=== PATIENT | male | born 1960 | race American Indian/Alaskan Native ===

== ENCOUNTER 2017-05-30 08:44 | Inpatient (IN) | payer MEDICAID ==
[2013-12-14 13:26] VITALS: BMI 43.2
[2017-05-30] MEDS ORDERED: Sodium Chloride 0.9% 1,000 ML IV STA ×2 (09:17→12:02)
[2017-05-30 09:40] LABS: BASO # 0.1 K/uL (0.0-0.2); BASO % 0.7 % (0.0-2.0); EOS # 0.1 K/uL (0.0-0.7); EOS % 0.9 % (0.0-4.0); HEMATOCRIT 42.6 % (35.0-51.0); LYMPH # 1.1 K/uL (1.0-4.3); LYMPH % 10.4 % (20.0-40.0); MEAN CELL VOLUME 89.4 fL (80.0-94.0); MEAN CORPUSCULAR HEMOGLOBIN 29.5 pg (27.0-31.0); MEAN PLATELET VOLUME 11.4 fL (7.2-11.7); MONO # 0.8 K/uL (0.0-0.8); MONO % 7.4 % (0.0-10.0); WHITE BLOOD COUNT 11.1 K/uL (4.8-10.8)
[2017-05-30 09:44] LABS: VENOUS BLOOD GAS BASE EXCESS -9.8 mmol/L (0.0-2.0); VENOUS BLOOD GAS PCO2 30 mmHg (40-60); VENOUS BLOOD PH 7.31 (7.32-7.43)
[2017-05-30 09:52] LABS: CHLORIDE 90 mmol/L (98-107)
[2017-05-30] MEDS ORDERED: (Novolin R) Insulin Human Regular 100 units/ml vial IV STA ×2 (09:52)
[2017-05-30 09:53] LABS: POTASSIUM 4.7 mmol/L (3.6-5.2); SODIUM 125 mmol/L (132-148)
[2017-05-30 09:55] LABS: ALB/GLOB RATIO 1.2 (1.0-2.1); AST/SGOT 19 U/L (17-59); BLOOD UREA NITROGEN 17 mg/dL (9-20); CARBON DIOXIDE 15 mmol/L (22-30); GFR AFRICAN-AMERICAN > 60; TOTAL PROTEIN 8.2 g/dL (6.3-8.3)
[2017-05-30 09:56] LABS: ALKALINE PHOSPHATASE 116 U/L (38-126); ALT/SGPT 34 U/L (21-72)
[2017-05-30] MEDS ORDERED: (Novolin R) Insulin Human Regular 100 units/ml vial ONE (10:06)
[2017-05-30 10:17] LABS: GLUCOSE,RANDOM 562 mg/dL (75-110)
--- NOTE | 2017-05-30 11:04 | C.PDOC ---
History Of Present Illness 56 year old male presents to the ED complaining of not feeling well for the past week. He reports fatigue, feeling drained, and always feeling thirsty. Patient has a history of HTN, CAD, and stent placement. No prior history of diabetes. Time Seen by Provider: 05/30/17 08:56 Chief Complaint (Nursing): Weakness/Neurological Deficit History Per: Patient History/Exam Limitations: no limitations Onset/Duration Of Symptoms: Days Current Symptoms Are (Timing): Still Present Past Medical History Reviewed: Historical Data, Nursing Documentation, Vital Signs Vital Signs: Last Vital Signs Temp 97.7 F 05/30/17 08:48 Pulse 70 05/30/17 12:41 Resp 16 05/30/17 12:41 BP 137/78 05/30/17 12:41 Pulse Ox 98 05/30/17 15:52 - Medical History PMH: HTN Surgical History: Denies: Pacemaker - [facility] Procedures CORONAR ARTERIOGR-2 CATH (12/15/13) LEFT HEART CARDIAC CATH (12/15/13) LT HEART ANGIOCARDIOGRAM (12/15/13) Family History: States: Unknown Family Hx - Social History Hx Alcohol Use: Yes (BEER STOPPED 5 MONS AGO) Hx Substance Use: No Review Of Systems Constitutional: Positive for: Weakness, Other (Fatigue, Polydipsia ) Physical Exam - Physical Exam Appears: Non-toxic, No Acute Distress Skin: Normal Color, Warm, Dry Head: Atraumatic, Normacephalic Eye(s): bilateral: Normal Inspection, PERRL, EOMI Oral Mucosa: Dry, Other (Breath with fruity smell) Throat: Other Neck: Normal, Normal ROM, Supple Chest: Symmetrical, No Tenderness Cardiovascular: Rhythm Regular (Regular Rate), No Murmur Respiratory: Normal Breath Sounds Gastrointestinal/Abdominal: Soft, No Tenderness Extremity: Normal ROM, No Tenderness, No Calf Tenderness, No Swelling Neurological/Psych: Oriented x3, Normal Speech, Normal Cognition, Normal Motor, Normal Sensation ED Course And Treatment - Laboratory Results Result Diagrams: 05/30/17 09:34 05/30/17 14:20 O2 Sat by Pulse Oximetry: 98 - Radiology CXR: Interpreted by In CXR Interpretation: Yes: No Acute Disease Progress Note: Repeated BMP with improvement. Stopped Insulin Drip. Endocrinilogy consult at bedside. Patient is stable to be admitted to [facility]. Medical Decision Making Medical Decision Makin05/30/17 09:40 Finger stick over 400. Labs, including VBG, ordered. 09:50 pH slightly decreased but chemistry shows that patient has a low bicarb, elevated anion gap, and small serum ketones . Patient given IV fluids, 6 units of insulin IVP, and started on insulin drip at 5 units per hour. Case discussed with ICU attending Dr. Wong who cleared patient from ICU and states that the patient is stable enough to be admitted to the floor. He requests patient be admitted to telemetry to decreased IV drip to 3 units per hour and active check every 2 hours. 05/30/17 10:[address] Johnson who recommended speaking with Dr. Garth Vasquez for endocrinology consult. 05/30/17 11:[address] Vasquez numerous times with no response. Disposition - Disposition Disposition: HOSPITALIZED Disposition Time: 12:10 Condition: SERIOUS - Clinical Impression Clinical Impression: Diabetes mellitus, new onset, DKA (diabetic ketoacidoses) - Scribe Statement The provider has reviewed the documentation as recorded by the Scribe Georges Edwards
[2017-05-30] MEDS ORDERED: Insulin Human Regular 100 UNIT in Sodium Chloride 0.9% 99 ML IV STA (11:30)
[2017-05-30] MEDS: Insulin Human Regular 100 UNIT in Sodium Chloride 0.9% 99 ML IV STA ×2 (11:38→11:43)
[2017-05-30 12:26] LABS: RBC URINE < 1 /hpf (0-3); URINE BILIRUBIN NEGATIVE (NEGATIVE); URINE BLOOD NEGATIVE (NEGATIVE); URINE COLOR Straw (YELLOW); URINE GLUCOSE (UA) 3+ mg/dL (Normal); URINE KETONE 2+ mg/dL (NEGATIVE); URINE LEUKOCYTE ESTERASE NEG Leu/uL (Negative); URINE PROTEIN NEGATIVE (NEGATIVE); URINE UROBILINOGEN NORMAL mg/dL (0.2-1.0); WBC URINE 2 /hpf (0-5)
[2017-05-30] MEDS ORDERED: Sodium Chloride 0.9% 1,000 ML ONE (13:09)
[2017-05-30] MEDS: Sodium Chloride 0.9% 1,000 ML IV SCH ×3 (13:11→22:18)
--- NOTE | 2017-05-30 14:06 | RAD ---
PROCEDURE: CHEST RADIOGRAPH, 1 VIEW HISTORY: hyperglycemia COMPARISON: None available. FINDINGS: LUNGS: Clear. PLEURA: No pneumothorax or pleural fluid seen. CARDIOVASCULAR: Normal. OSSEOUS STRUCTURES: No significant abnormalities. VISUALIZED UPPER ABDOMEN: Normal. OTHER FINDINGS: None. IMPRESSION: No active disease.
[2017-05-30 14:50] LABS: CHLORIDE 98 mmol/L (98-107); POTASSIUM 3.9 mmol/L (3.6-5.2); SODIUM 131 mmol/L (132-148)
[2017-05-30 14:53] LABS: BLOOD UREA NITROGEN 13 mg/dL (9-20); CARBON DIOXIDE 16 mmol/L (22-30); GFR AFRICAN-AMERICAN > 60
[2017-05-30 14:54] LABS: CALCIUM 8.4 mg/dl (8.6-10.4); GLUCOSE,RANDOM 303 mg/dL (75-110)
[2017-05-30] MEDS ORDERED: (Lantus) Insulin Glargine, Recombinant SC STA (16:14)
[2017-05-30] MEDS ORDERED: (Lantus) Insulin Glargine, Recombinant SC SCH (16:30)
[2017-05-30] MEDS ORDERED: (Novolin R) Insulin Human Regular 100 units/ml vial SC SCH (16:30)
[2017-05-30] MEDS ORDERED: (Lantus) Insulin Glargine, Recombinant SC ONE (16:33)
--- NOTE | 2017-05-30 17:27 | CP.PCM.CON ---
History of Present Illness - History of Present Illness History of Present Illness: diabetes Past Patient History - Past Social History Smoking Status: Never Smoked - CARDIAC Hx Hypertension: Yes Hx Pacemaker: No - NEUROLOGICAL Hx Paralysis: No - HEMATOLOGICAL/ONCOLOGICAL Hx Blood Transfusions: No Hx Blood Transfusion Reaction: No - MUSCULOSKELETAL/RHEUMATOLOGICAL Hx Musculoskeletal Disorders: Yes - PSYCHIATRIC Hx Substance Use: No - SURGICAL HISTORY Hx Surgeries: Yes Other/Comment: CORONARY STENT X2 - ANESTHESIA Hx Anesthesia Reactions: No Hx Malignant Hyperthermia: No Meds Allergies/Adverse Reactions: Allergies Allergy/AdvReac Type Severity Reaction Status Date / Time No Known Allergies Allergy Verified 05/30/17 08:53 - Medications Medications: Current Medications Clopidogrel Bisulfate (Plavix) 75 mg PO DAILY [facility] Enoxaparin Sodium (Lovenox) 40 mg SC DAILY [facility] Home Med (Lisinopril [Lisinopril]) 12.5 mg PO DAILY [facility] Insulin Human Regular 100 unit (/ Sodium Chloride) 100 mls @ 3 mls/hr IV .Q24H STA PRN Reason: 3 U/HR Stop: 05/31/17 10:23 Last Admin: 05/30/17 11:30 Dose: 3 mls/hr Sodium Chloride (Sodium Chloride 0.9%) 1,000 mls @ 200 mls/hr IV .Q5H [facility] Last Admin: 05/30/17 13:11 Dose: 200 mls/hr Insulin Glargine (Lantus) 20 unit SC DAILY [facility] Last Admin: 05/30/17 16:34 Dose: 20 unit Insulin Human Regular (Novolin R) 0 unit SC ACHS YULIA PRN Reason: Protocol Insulin Human Regular (Novolin R) 5 unit SC AC [facility] Metoprolol Tartrate (Lopressor) 25 mg PO DAILY [facility] Rosuvastatin Calcium (Crestor) 10 mg PO HS [facility] Results - Vital Signs Recent Vital Signs: Last Vital Signs Temp 97.7 F 05/30/17 08:48 Pulse 70 05/30/17 12:41 Resp 16 05/30/17 12:41 BP 137/78 05/30/17 12:41 Pulse Ox 98 05/30/17 16:32 - Labs Result Diagrams: 05/30/17 09:34 05/30/17 14:20 Labs: Laboratory Results - last 24 hr 05/30/17 05/30/17 05/30/17 08:51 09:34 09:34 WBC 11.1 H RBC 4.76 Hgb 14.0 Hct 42.6 MCV 89.4 MCH 29.5 MCHC 33.0 RDW 14.0 Plt Count 257 MPV 11.4 Neut % (Auto) 80.6 H Lymph % (Auto) 10.4 L [place] % (Auto) 7.4 Eos % (Auto) 0.9 Baso % (Auto) 0.7 Neut # 8.9 H Lymph # 1.1 [place] # 0.8 Eos # 0.1 Baso # 0.1 pO2 VBG pH VBG pCO2 VBG HCO3 VBG Total CO2 VBG O2 Sat (Calc) VBG Base Excess VBG Potassium Glucose Lactate Crit Value Called To Crit Value Called By Crit Value Read Back Blood Gas Notified Time Sodium 125 L Potassium 4.7 Chloride 90 L Carbon Dioxide 15 L Anion Gap 25 H BUN 17 Creatinine 1.0 Est GFR ( Amer) > 60 Est GFR (Non-Af Amer) > 60 POC Glucose (mg/dL) 446 H* Random Glucose 562 H* Calcium 9.0 Magnesium Total Bilirubin 1.0 AST 19 ALT 34 Alkaline Phosphatase 116 Total Protein 8.2 Albumin 4.5 Globulin 3.8 Albumin/Globulin Ratio 1.2 Venous Blood Potassium Urine Color Urine Clarity Urine pH Ur Specific [place] Urine Protein Urine Glucose (UA) Urine Ketones Urine Blood Urine Nitrate Urine Bilirubin Urine Urobilinogen Ur Leukocyte Esterase Urine WBC (Auto) Urine RBC (Auto) Ur Squamous Epith Cells Serum Ketones Small 05/30/17 05/30/17 05/30/17 09:37 11:11 12:17 WBC RBC Hgb Hct MCV MCH MCHC RDW Plt Count MPV Neut % (Auto) Lymph % (Auto) [place] % (Auto) Eos % (Auto) Baso % (Auto) Neut # Lymph # [place] # Eos # Baso # pO2 53 VBG pH 7.31 L VBG pCO2 30 L VBG HCO3 16.9 VBG Total CO2 16.0 L VBG O2 Sat (Calc) 88.9 H VBG Base Excess -9.8 L VBG Potassium 4.6 Glucose 635 H* Lactate 1.7 Crit Value Called To Dr alarcon Crit Value Called By Tra barajas assistant housekeeping manager Crit Value Read Back Y Blood Gas Notified Time 944 Sodium 129.0 L Potassium Chloride 90.0 L Carbon Dioxide Anion Gap BUN Creatinine Est GFR ( Amer) Est GFR (Non-Af Amer) POC Glucose (mg/dL) 489 H* Random Glucose Calcium Magnesium Total Bilirubin AST ALT Alkaline Phosphatase Total Protein Albumin Globulin Albumin/Globulin Ratio Venous Blood Potassium 4.6 Urine Color Straw Urine Clarity Clear Urine pH 5.0 Ur Specific [place] 1.030 Urine Protein Negative Urine Glucose (UA) 3+ H Urine Ketones 2+ H Urine Blood Negative Urine Nitrate Negative Urine Bilirubin Negative Urine Urobilinogen Normal Ur Leukocyte Esterase Neg Urine WBC (Auto) 2 Urine RBC (Auto) < 1 Ur Squamous Epith Cells < 1 Serum Ketones 05/30/17 05/30/17 05/30/17 12:22 14:20 14:23 WBC RBC Hgb Hct MCV MCH MCHC RDW Plt Count MPV Neut % (Auto) Lymph % (Auto) [place] % (Auto) Eos % (Auto) Baso % (Auto) Neut # Lymph # [place] # Eos # Baso # pO2 VBG pH VBG pCO2 VBG HCO3 VBG Total CO2 VBG O2 Sat (Calc) VBG Base Excess VBG Potassium Glucose Lactate Crit Value Called To Crit Value Called By Crit Value Read Back Blood Gas Notified Time Sodium 131 L Potassium 3.9 Chloride 98 Carbon Dioxide 16 L Anion Gap 21 H BUN 13 Creatinine 0.7 L Est GFR ( Amer) > 60 Est GFR (Non-Af Amer) > 60 POC Glucose (mg/dL) 418 H* Random Glucose 303 H Calcium 8.4 L Magnesium 2.1 Total Bilirubin AST ALT Alkaline Phosphatase Total Protein Albumin Globulin Albumin/Globulin Ratio Venous Blood Potassium Urine Color Urine Clarity Urine pH Ur Specific [place] Urine Protein Urine Glucose (UA) Urine Ketones Urine Blood Urine Nitrate Urine Bilirubin Urine Urobilinogen Ur Leukocyte Esterase Urine WBC (Auto) Urine RBC (Auto) Ur Squamous Epith Cells Serum Ketones Moderate 05/30/17 05/30/17 15:11 16:10 WBC RBC Hgb Hct MCV MCH MCHC RDW Plt Count MPV Neut % (Auto) Lymph % (Auto) [place] % (Auto) Eos % (Auto) Baso % (Auto) Neut # Lymph # [place] # Eos # Baso # pO2 VBG pH VBG pCO2 VBG HCO3 VBG Total CO2 VBG O2 Sat (Calc) VBG Base Excess VBG Potassium Glucose Lactate Crit Value Called To Crit Value Called By Crit Value Read Back Blood Gas Notified Time Sodium Potassium Chloride Carbon Dioxide Anion Gap BUN Creatinine Est GFR ( Amer) Est GFR (Non-Af Amer) POC Glucose (mg/dL) 295 H 274 H Random Glucose Calcium Magnesium Total Bilirubin AST ALT Alkaline Phosphatase Total Protein Albumin Globulin Albumin/Globulin Ratio Venous Blood Potassium Urine Color Urine Clarity Urine pH Ur Specific [place] Urine Protein Urine Glucose (UA) Urine Ketones Urine Blood Urine Nitrate Urine Bilirubin Urine Urobilinogen Ur Leukocyte Esterase Urine WBC (Auto) Urine RBC (Auto) Ur Squamous Epith Cells Serum Ketones Assessment & Plan (1) DKA (diabetic ketoacidoses) Status: Acute (2) Diabetes mellitus, new onset Assessment and Plan: Endocrine consult reason for consult: new onset diabetes uncontrolled diabetes Source : Mr. Owusu is y/o man admitted for fatigue found with glucose >600 pt. seen in ER as per pt. has been feeling tired , polyuria , polydepsia , blurry vison for one week , also admit to weight loss & axillary & penile rash with itching with CAD s/p stents , pt started on regular insulin drip 3units /h , last glucose in 200 Allergy NKDA Past medical history :HTN , hyperlipidemia Past surgical history : hernia , s/p stents x 2 Psychiatry history : denies Social history : denies smoking , ETOH use , illicit drug use Family history : mother & brother with diabetes ROS: Constitutional: denies fever ,(+) tiredness/weakness .HEENT: denies earache, change in voice .Respiratory: denies cough, sob . CVS :no chest pain , no palpitations . Abdomen : no abdominal pain, no nausea /vomiting , no change bowel movement . WATER SPONGER : denies light-headedness, dizziness. Extremities : no edema , no tremors . Skin: (+) itching, (+) rash Physical exam Well developed AAO x3 , ,NAD VSS HEENT: norm cephalic, atraumatic , no lid lag , no exophthalmos NECK: supple, no palpable lymphadenopathy THYROID: no palpable thyromegaly , not tender CHEST: fair air entry, bilateral, CVS: S1,S2 ABDOMEN: bowel sound present, benign, obese, no wide purple striae , no bruises EXTREMITIES: no edema, clubbing or cyanosis, no palpable hand tremors Skin : marked acanthosis nigricans , axillary rash & penile which rash lab: AG 21 , PH 7.3, ketones (+) Assessment DKA new onset DM penile ( palanitis ) & axillaty (intertrigo ) morbid obesity CAD s/p stent x 2 plan continue hyderation satrt lantus 20units daily first stat start Novoloin R low dose coverage, no 3 am coverage start novoloin R 5 units tid with meals if eat > 60% lotrisone cream bid affected areas diabetic education low carb diet obtain a1c & TSH plan communicated with nurse in charge who read back the instructions correctly Thank you for allowing me to participate in the care of the patient, we will follow with you. Status: Acute (3) Morbid obesity Status: Acute (4) Marisol infection of genital region Status: Acute
--- NOTE | 2017-05-30 21:44 | CP.PCM.HP ---
History of Present Illness - History of Present Illness History of Present Illness: Chief Complaint: GENERLAIZED Weakness/Neurological Deficit/POLYURIA/POLYDIPSIA HPI: 56 year old male presents to the ED complaining of not feeling well for the past week. He reports fatigue, feeling drained, and always feeling thirsty, anorexia, fatigue, he ahs lost some weight, according to pt he has been non complaint with his diet and meds. Patient has a history of HTN, CAD, and stent placement s/p PTCA, 2 angioplasties in past. No prior history of diabetes. Present on Admission - Present on Admission Any Indicators Present on Admission: Yes History of Uncontrolled Diabetes: Yes Review of Systems - Review of Systems Systems not reviewed;Unavailable: Acuity of Condition - Constitutional Constitutional: Anorexia, Fatigue, Lethargy, Malaise, Weight Loss, Weakness. absent: As Per HPI, Chills, Daytime Sleepiness, Excessive Sweating, Fever, Frequent Falls, Headache, Increased Appetite, Night Sweats, Snoring, Sleep Apnea , Weight Gain, Other - EENT Eyes: absent: As Per HPI, Blind Spots, Blurred Vision, Change in Vision, Decreased Night Vision, Diplopia, Discharge, Dry Eye, Exophthalmos, Floaters, Irritation, Itchy Eyes, Loss of Peripheral Vision, Pain, Photophobia, Requires Corrective Lenses, Sees Flashes, Spots in Vision, Tunnel Vision, Other Visual Disturbances, Loss of Vision, Other Ears: absent: As Per HPI, Decreased Hearing, Ear Discharge, Ear Pain, Tinnitus, Abnormal Hearing, Disequilibrium, Dizziness, Other Nose/Mouth/Throat: absent: As Per HPI, Epistaxis, Nasal Congestion, Nasal Discharge, Nasal Obstruction, Nasal Trauma, Nose Pain, Post Nasal Drip, Sinus Pain, Sinus Pressure, Bleeding Gums, Change in Voice, Dental Pain, Dry Mouth, Dysphagia, Halitosis, Hoarsness, Lip Swelling, Mouth Lesions, Mouth Pain, Odynophagia, Sore Throat, Throat Swelling, Tongue Swelling, Facial Pain, Neck Pain, Neck Mass, Other - Cardiovascular Cardiovascular: absent: As Per HPI, Acrocyanosis, Chest Pain, Chest Pain at Rest , Chest Pain with Activity, Claudication, Diaphoresis, Dyspnea, Dyspnea on Exertion, Edema, Irregular Heart Rhythm, Pain Radiating to Arm/Neck/Jaw, Leg Edema, Leg Ulcers, Lightheadedness, Orthopnea, Palpitations, Paroxysmal Nocturnal Dyspnea, Pedal Edema, Radiating Pain, Rapid Heart Rate, Slow Heart Rate, Syncope, Other - Respiratory Respiratory: absent: As Per HPI, Cough, Dyspnea, Hemoptysis, Dyspnea on Exertion , Wheezing, Snoring, Stridor, Pain on Inspiration, Chest Congestion, Excessive Mucous Production, Change in Mucous Color, Pain with Coughing, Other - Genitourinary Genitourinary: Urinary Frequency - Musculoskeletal Musculoskeletal: absent: As Per HPI, Abnormal Gait, Arthralgias, Atrophy, Back Pain, Deformity, Joint Swelling, Limited Range of Motion, Loss of Height, Muscle Cramps, Muscle Weakness, Myalgias, Neck Pain, Numbness, Radiating Pain into Limb, Stiffness, Tingling, Other - Integumentary Integumentary: absent: As Per HPI, Acne, Alopecia, Bleeding Lesions, Change in Hair, Change in Nails, Change in Pigmentation, Changing Lesions, Dry Skin, Erythema, Furuncle, Hirsutism, Lesions, New Lesions, Non-Healing Lesions, Photosensitivity, Pruritus, Rash, Skin Pain, Skin Ulcer, Sores, Striae, Swelling , Unusual Bruising, Wounds, Jaundice, Other - Endocrine Endocrine: Fatigue, Polydipsia, Polyphagia, Polyuria Past Patient History - Past Social History Smoking Status: Never Smoked - CARDIAC Hx Hypertension: Yes Hx Pacemaker: No - NEUROLOGICAL Hx Paralysis: No - HEMATOLOGICAL/ONCOLOGICAL Hx Blood Transfusions: No Hx Blood Transfusion Reaction: No - MUSCULOSKELETAL/RHEUMATOLOGICAL Hx Musculoskeletal Disorders: Yes - PSYCHIATRIC Hx Substance Use: No - SURGICAL HISTORY Hx Surgeries: Yes Other/Comment: CORONARY STENT X2 - ANESTHESIA Hx Anesthesia Reactions: No Hx Malignant Hyperthermia: No Meds Allergies/Adverse Reactions: Allergies Allergy/AdvReac Type Severity Reaction Status Date / Time No Known Allergies Allergy Verified 05/30/17 08:53 Physical Exam - Constitutional Appears: No Acute Distress - Head Exam Head Exam: ATRAUMATIC, NORMAL INSPECTION, NORMOCEPHALIC - Eye Exam Eye Exam: EOMI, Normal appearance, PERRL Pupil Exam: NORMAL ACCOMODATION, PERRL - ENT Exam ENT Exam: Mucous Membranes Moist, Normal Exam - Neck Exam Neck exam: Positive for: Normal Inspection - Respiratory Exam Respiratory Exam: Clear to Auscultation Bilateral, NORMAL BREATHING PATTERN - Cardiovascular Exam Cardiovascular Exam: REGULAR RHYTHM, +S1, +S2 - GI/Abdominal Exam GI & Abdominal Exam: Normal Bowel Sounds, Soft. absent: Tenderness - Neurological Exam Neurological exam: Alert, CN II-XII Intact, Normal Gait, Oriented x3, Reflexes Normal - Psychiatric Exam Psychiatric exam: Anxious - Skin Skin Exam: Dry, Intact, Normal Color, Warm Results - Vital Signs Recent Vital Signs: Last Vital Signs Temp 97.4 F L 05/30/17 21:19 Pulse 91 H 05/30/17 21:19 Resp 22 05/30/17 21:19 BP 114/64 05/30/17 21:19 Pulse Ox 99 05/30/17 21:19 - Labs Result Diagrams: 05/31/17 07:08 05/30/17 14:20 Labs: Laboratory Results - last 24 hr 05/30/17 05/30/17 05/30/17 08:51 09:34 09:34 WBC 11.1 H RBC 4.76 Hgb 14.0 Hct 42.6 MCV 89.4 MCH 29.5 MCHC 33.0 RDW 14.0 Plt Count 257 MPV 11.4 Neut % (Auto) 80.6 H Lymph % (Auto) 10.4 L [place] % (Auto) 7.4 Eos % (Auto) 0.9 Baso % (Auto) 0.7 Neut # 8.9 H Lymph # 1.1 [place] # 0.8 Eos # 0.1 Baso # 0.1 pO2 VBG pH VBG pCO2 VBG HCO3 VBG Total CO2 VBG O2 Sat (Calc) VBG Base Excess VBG Potassium Glucose Lactate Crit Value Called To Crit Value Called By Crit Value Read Back Blood Gas Notified Time Sodium 125 L Potassium 4.7 Chloride 90 L Carbon Dioxide 15 L Anion Gap 25 H BUN 17 Creatinine 1.0 Est GFR ( Amer) > 60 Est GFR (Non-Af Amer) > 60 POC Glucose (mg/dL) 446 H* Random Glucose 562 H* Calcium 9.0 Magnesium Total Bilirubin 1.0 AST 19 ALT 34 Alkaline Phosphatase 116 Total Protein 8.2 Albumin 4.5 Globulin 3.8 Albumin/Globulin Ratio 1.2 Venous Blood Potassium Urine Color Urine Clarity Urine pH Ur Specific [place] Urine Protein Urine Glucose (UA) Urine Ketones Urine Blood Urine Nitrate Urine Bilirubin Urine Urobilinogen Ur Leukocyte Esterase Urine WBC (Auto) Urine RBC (Auto) Ur Squamous Epith Cells Serum Ketones Small 05/30/17 05/30/17 05/30/17 09:37 11:11 12:17 WBC RBC Hgb Hct MCV MCH MCHC RDW Plt Count MPV Neut % (Auto) Lymph % (Auto) [place] % (Auto) Eos % (Auto) Baso % (Auto) Neut # Lymph # [place] # Eos # Baso # pO2 53 VBG pH 7.31 L VBG pCO2 30 L VBG HCO3 16.9 VBG Total CO2 16.0 L VBG O2 Sat (Calc) 88.9 H VBG Base Excess -9.8 L VBG Potassium 4.6 Glucose 635 H* Lactate 1.7 Crit Value Called To Dr alarcon Crit Value Called By Tra barajas beam builder helper Crit Value Read Back Y Blood Gas Notified Time 944 Sodium 129.0 L Potassium Chloride 90.0 L Carbon Dioxide Anion Gap BUN Creatinine Est GFR ( Amer) Est GFR (Non-Af Amer) POC Glucose (mg/dL) 489 H* Random Glucose Calcium Magnesium Total Bilirubin AST ALT Alkaline Phosphatase Total Protein Albumin Globulin Albumin/Globulin Ratio Venous Blood Potassium 4.6 Urine Color Straw Urine Clarity Clear Urine pH 5.0 Ur Specific [place] 1.030 Urine Protein Negative Urine Glucose (UA) 3+ H Urine Ketones 2+ H Urine Blood Negative Urine Nitrate Negative Urine Bilirubin Negative Urine Urobilinogen Normal Ur Leukocyte Esterase Neg Urine WBC (Auto) 2 Urine RBC (Auto) < 1 Ur Squamous Epith Cells < 1 Serum Ketones 05/30/17 05/30/17 05/30/17 12:22 14:20 14:23 WBC RBC Hgb Hct MCV MCH MCHC RDW Plt Count MPV Neut % (Auto) Lymph % (Auto) [place] % (Auto) Eos % (Auto) Baso % (Auto) Neut # Lymph # [place] # Eos # Baso # pO2 VBG pH VBG pCO2 VBG HCO3 VBG Total CO2 VBG O2 Sat (Calc) VBG Base Excess VBG Potassium Glucose Lactate Crit Value Called To Crit Value Called By Crit Value Read Back Blood Gas Notified Time Sodium 131 L Potassium 3.9 Chloride 98 Carbon Dioxide 16 L Anion Gap 21 H BUN 13 Creatinine 0.7 L Est GFR ( Amer) > 60 Est GFR (Non-Af Amer) > 60 POC Glucose (mg/dL) 418 H* Random Glucose 303 H Calcium 8.4 L Magnesium 2.1 Total Bilirubin AST ALT Alkaline Phosphatase Total Protein Albumin Globulin Albumin/Globulin Ratio Venous Blood Potassium Urine Color Urine Clarity Urine pH Ur Specific [place] Urine Protein Urine Glucose (UA) Urine Ketones Urine Blood Urine Nitrate Urine Bilirubin Urine Urobilinogen Ur Leukocyte Esterase Urine WBC (Auto) Urine RBC (Auto) Ur Squamous Epith Cells Serum Ketones Moderate 05/30/17 05/30/17 15:11 16:10 WBC RBC Hgb Hct MCV MCH MCHC RDW Plt Count MPV Neut % (Auto) Lymph % (Auto) [place] % (Auto) Eos % (Auto) Baso % (Auto) Neut # Lymph # [place] # Eos # Baso # pO2 VBG pH VBG pCO2 VBG HCO3 VBG Total CO2 VBG O2 Sat (Calc) VBG Base Excess VBG Potassium Glucose Lactate Crit Value Called To Crit Value Called By Crit Value Read Back Blood Gas Notified Time Sodium Potassium Chloride Carbon Dioxide Anion Gap BUN Creatinine Est GFR ( Amer) Est GFR (Non-Af Amer) POC Glucose (mg/dL) 295 H 274 H Random Glucose Calcium Magnesium Total Bilirubin AST ALT Alkaline Phosphatase Total Protein Albumin Globulin Albumin/Globulin Ratio Venous Blood Potassium Urine Color Urine Clarity Urine pH Ur Specific [place] Urine Protein Urine Glucose (UA) Urine Ketones Urine Blood Urine Nitrate Urine Bilirubin Urine Urobilinogen Ur Leukocyte Esterase Urine WBC (Auto) Urine RBC (Auto) Ur Squamous Epith Cells Serum Ketones Assessment & Plan (1) DKA (diabetic ketoacidoses) Status: Acute (2) Morbid obesity Status: Acute (3) Dehydration Status: Acute (4) CAD (coronary artery disease) Status: Acute (5) Diabetes mellitus, new onset Status: Acute
[2017-05-30] MEDS: (Lantus) Insulin Glargine, Recombinant SC SCH (22:10)
[2017-05-30] MEDS: (Novolin R) Insulin Human Regular 100 units/ml vial SC SCH (22:18)
[2017-05-31] MEDS: Clotrimazole/Betamethasone Cream(15 gm) TOP SCH ×3 (01:00→18:05)
[2017-05-31] MEDS: Sodium Chloride 0.9% 1,000 ML IV SCH ×2 (04:05→08:39)
[2017-05-31 07:20] LABS: BASO # 0.1 K/uL (0.0-0.2); BASO % 0.8 % (0.0-2.0); EOS # 0.1 K/uL (0.0-0.7); EOS % 1.4 % (0.0-4.0); HEMATOCRIT 37.6 % (35.0-51.0); LYMPH # 1.3 K/uL (1.0-4.3); LYMPH % 17.9 % (20.0-40.0); MEAN PLATELET VOLUME 10.8 fL (7.2-11.7); MONO # 0.6 K/uL (0.0-0.8); MONO % 8.5 % (0.0-10.0); WHITE BLOOD COUNT 7.4 K/uL (4.8-10.8)
[2017-05-31 07:38] LABS: CHLORIDE 100 mmol/L (98-107); SODIUM 130 mmol/L (132-148)
[2017-05-31 07:39] LABS: POTASSIUM 4.2 mmol/L (3.6-5.2)
[2017-05-31 07:41] LABS: GFR AFRICAN-AMERICAN > 60
[2017-05-31 07:42] LABS: BLOOD UREA NITROGEN 12 mg/dL (9-20); CALCIUM 8.3 mg/dl (8.6-10.4); CARBON DIOXIDE 16 mmol/L (22-30); GLUCOSE,RANDOM 299 mg/dL (75-110)
[2017-05-31] MEDS: (Novolin R) Insulin Human Regular 100 units/ml vial SC SCH ×7 (08:35→21:28)
[2017-05-31] MEDS: Enoxaparin 40 mg Syringe SC SCH (09:58)
[2017-05-31] MEDS ORDERED: LISINOPRIL PO SCH (10:00)
[2017-05-31] MEDS: (Lantus) Insulin Glargine, Recombinant SC SCH (21:48)
--- NOTE | 2017-05-31 22:04 | CP.PCM.PN ---
Subjective - Date & Time of Evaluation Date of Evaluation: 05/31/17 Time of Evaluation: 22:05 - Subjective Subjective: new onset DM Objective - Vital Signs/Intake and Output Vital Signs (last 24 hours): Temp Pulse Resp BP Pulse Ox 97.9 F 97 H 22 105/67 97 05/31/17 15:26 05/31/17 18:00 05/31/17 15:26 05/31/17 15:26 05/31/17 15:26 Intake and Output: 05/31/17 06/01/17 18:59 06:59 Intake Total 1800 Output Total 1450 Balance 350 - Medications Medications: Current Medications Betamethasone/Clotrimazole (Lotrisone) 0 gm TOP BID [facility] Last Admin: 05/31/17 18:05 Dose: 1 applic Clopidogrel Bisulfate (Plavix) 75 mg PO DAILY [facility] Last Admin: 05/31/17 09:54 Dose: 75 mg Enoxaparin Sodium (Lovenox) 40 mg SC DAILY [facility] Last Admin: 05/31/17 09:58 Dose: 40 mg Insulin Glargine (Lantus) 20 unit SC [facility] Last Admin: 05/31/17 21:48 Dose: 20 units Insulin Human Regular (Novolin R) 0 unit SC [facility]END[facility] TO [facility] PRN Reason: Protocol Last Admin: 05/31/17 21:28 Dose: Not Given Insulin Human Regular (Novolin R) 7 unit SC TIWAC [facility] Lisinopril (Zestril) 20 mg PO DAILY [facility] Last Admin: 05/31/17 10:49 Dose: 20 mg Metoprolol Tartrate (Lopressor) 25 mg PO DAILY [facility] Last Admin: 05/31/17 09:54 Dose: 25 mg Pneumococcal Polyvalent Vaccine (Pneumovax 23 Vaccine) 0.5 ml IM .ONCE ONE Stop: 06/01/17 14:01 Rosuvastatin Calcium (Crestor) 10 mg PO HS [facility] Last Admin: 05/31/17 21:47 Dose: 10 mg - Labs Labs: 05/31/17 07:08 05/31/17 07:08 Assessment and Plan (1) DKA (diabetic ketoacidoses) Assessment & Plan: Endocrine consult reason for consult: new onset diabetes uncontrolled diabetes Source : patient & chart revirew Mr. Owusu is 56 y/o man admitted for fatigue found with glucose >600 pt. seen in ER as per pt. has been feeling tired , polyuria , polydepsia , blurry vison for one week , also admit to weight loss & axillary & penile rash with itching with CAD s/p stents , pt started on regular insulin drip 3units /h , last glucose in 200 today glucose 200-300 no hypoglycemia Allergy NKDA Past medical history :HTN , hyperlipidemia Past surgical history : hernia , s/p stents x 2 Psychiatry history : denies Social history : denies smoking , ETOH use , illicit drug use Family history : mother & brother with diabetes ROS: Constitutional: denies fever ,(+) tiredness/weakness .HEENT: denies earache, change in voice .Respiratory: denies cough, sob . CVS :no chest pain , no palpitations . Abdomen : no abdominal pain, no nausea /vomiting , no change bowel movement . 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 Extremities : no edema , no tremors . Skin: (+) itching, (+) rash Physical exam Well developed AAO x3 , ,NAD VSS HEENT: norm cephalic, atraumatic , no lid lag , no exophthalmos NECK: supple, no palpable lymphadenopathy THYROID: no palpable thyromegaly , not tender CHEST: fair air entry, bilateral, CVS: S1,S2 ABDOMEN: bowel sound present, benign, obese, no wide purple striae , no bruises EXTREMITIES: no edema, clubbing or cyanosis, no palpable hand tremors Skin : marked acanthosis nigricans , axillary &penile rash lab: 05/31 a1c 14.7 , AG 18 , calcium 8.3 , alb 4.5 05/30 AG 21 , PH 7.3, ketones (+) Assessment DKA new onset DM penile ( palanitis ) & axillaty (intertrigo ) morbid obesity hypocalcemia CAD s/p stent x 2 plan resume lantus 20units tonight continue Novoloin R low dose coverage, no 3 am coverage increase novoloin R 7 units tid with meals if eat > 60% d/c Metformin for now lotrisone cream bid affected areas diabetic education low carb diet TSH & vitamin d 25-oh level Status: Acute (2) Diabetes mellitus, new onset Status: Acute (3) Morbid obesity Status: Acute (4) Marisol infection of genital region Status: Acute (5) Hypocalcemia Status: Acute
--- NOTE | 2017-05-31 22:32 | CP.PCM.PN ---
Subjective - Date & Time of Evaluation Date of Evaluation: 05/31/17 Time of Evaluation: 19:00 - Subjective Subjective: Pt seen and examined,is feeling better, DKA resolved, not short of breath, no nausea, vomitting,pt is being monitored Objective - Vital Signs/Intake and Output Vital Signs (last 24 hours): Temp Pulse Resp BP Pulse Ox 97.9 F 97 H 22 105/67 97 05/31/17 15:26 05/31/17 18:00 05/31/17 15:26 05/31/17 15:26 05/31/17 15:26 Intake and Output: 05/31/17 06/01/17 18:59 06:59 Intake Total 1800 Output Total 1450 Balance 350 - Medications Medications: Current Medications Betamethasone/Clotrimazole (Lotrisone) 0 gm TOP BID [facility] Last Admin: 05/31/17 18:05 Dose: 1 applic Clopidogrel Bisulfate (Plavix) 75 mg PO DAILY [facility] Last Admin: 05/31/17 09:54 Dose: 75 mg Enoxaparin Sodium (Lovenox) 40 mg SC DAILY [facility] Last Admin: 05/31/17 09:58 Dose: 40 mg Insulin Glargine (Lantus) 20 unit SC [facility] Last Admin: 05/31/17 21:48 Dose: 20 units Insulin Human Regular (Novolin R) 0 unit SC [facility] PRN Reason: Protocol Last Admin: 05/31/17 21:28 Dose: Not Given Insulin Human Regular ([facility]olin R) [facility] Lisinopril (Zestril) 20 mg PO DAILY [facility] Last Admin: 05/31/17 10:49 Dose: 20 mg Metoprolol Tartrate (Lopressor) 25 mg PO DAILY [facility] Last Admin: 05/31/17 09:54 Dose: 25 mg Pneumococcal Polyvalent Vaccine (Pneumovax 23 Vaccine) 0.5 ml IM .ONCE ONE Stop: 06/01/17 14:01 Rosuvastatin Calcium (Crestor) 10 mg PO [facility] Last Admin: 05/31/17 21:47 Dose: 10 mg - Labs Labs: 05/31/17 07:08 05/31/17 07:08 - Constitutional Appears: No Acute Distress - Head Exam Head Exam: ATRAUMATIC, NORMAL INSPECTION, NORMOCEPHALIC - Eye Exam Eye Exam: EOMI, Normal appearance, PERRL Pupil Exam: NORMAL ACCOMODATION, PERRL - Respiratory Exam Respiratory Exam: Clear to Ausculation Bilateral, NORMAL BREATHING PATTERN - Cardiovascular Exam Cardiovascular Exam: REGULAR RHYTHM, +S1, +S2. absent: Murmur - GI/Abdominal Exam GI & Abdominal Exam: Soft, Normal Bowel Sounds. absent: Tenderness Assessment and Plan (1) DKA (diabetic ketoacidoses) Assessment & Plan: D/C IV fluids Status: Acute (2) Morbid obesity Status: Acute (3) Dehydration Status: Acute (4) CAD (coronary artery disease) Status: Acute (5) Diabetes mellitus, new onset Status: Acute
--- NOTE | 2017-05-31 22:33 | CON ---
CARDIOLOGY CONSULT REASON FOR CONSULTATION: History of lu artery disease. HISTORY OF PRESENT ILLNESS: The patient is a 56-year-old male who has a history of hypertension and history of coronary artery disease with questionable stent placement in the past at [facility] according to the patient, presented because of generalized weakness as well as feeling thirsty. The patient is unaware of any prior history of diabetes mellitus. The patient's initial blood sugar was 489. The patient denies any retrosternal chest pain, no shortness of breath at this time. MEDICATIONS: The patient is on Crestor 10 mg once a day, metformin 500 mg once a day, regular insulin coverage by Accu-Chek q. 6 hours, Lopressor 25 mg daily, Lovenox 40 mg subcutaneously daily, Plavix 75 mg once a day and Zestril 20 mg once a day. REVIEW OF SYSTEMS: No fever or chills, no vomiting or diarrhea, no productive cough and no dizziness or syncope. PHYSICAL EXAMINATION: GENERAL: The patient is a middle-aged male who does not appear to be in acute distress. VITAL SIGNS: Blood pressure 119/70, heart rate 89, temperature 98.3 and respirations 20. HEENT: Normocephalic. NECK: No JVD. CHEST: Clear. HEART: S1 and S2 regular. EXTREMITIES: Trace leg edema. LABORATORY DATA: Today's hemoglobin, hematocrit, white count and platelet count are within normal limits. SMA-7 showed sodium 131, potassium 3.9, chloride 98, CO2 of 16, glucose 303, BUN 13 and creatinine 0.7. Magnesium 2.1. Serum ketones are moderate. EKGs are inaccessible in [employer] database. Review of the patient's rhythm strips and the EKG in the chart, the patient did have an SVT last night and 12-lead EKG revealed SVT with lateral ischemic ST changes, that SVT was terminated with 10 mg of IV Cardizem. Chest x-ray, no active disease. Cardiac catheterization in 12/2013 at [facility] revealed nonobstructive coronary artery disease, namely 30% stenosis of the mid LAD and 30% of the mid right coronary artery and mildly depressed ejection fraction, this is in contrast to the patient's information that he had a stent 3 years ago at [facility]. ASSESSMENT: 1. Newly diagnosed diabetes mellitus. 2. Nonobstructive coronary artery disease. 3. Hypertension. RECOMMENDATIONS: Continue current Lopressor, Plavix, Zestril and subcutaneous Lovenox. Obtain an echocardiogram. Michael Bell MD
[2017-06-01 07:52] LABS: THYROID STIMULATING HORMONE 1.88 mIU/L (0.46-4.68)
[2017-06-01] MEDS: (Novolin R) Insulin Human Regular 100 units/ml vial SC SCH ×7 (08:27→18:18)
[2017-06-01] MEDS: Enoxaparin 40 mg Syringe SC SCH (09:48)
[2017-06-01] MEDS: Clotrimazole/Betamethasone Cream(15 gm) TOP SCH ×2 (09:49→18:19)
[2017-06-01 10:04] LABS: CHLORIDE 98 mmol/L (98-107); POTASSIUM 4.1 mmol/L (3.6-5.2); SODIUM 128 mmol/L (132-148)
[2017-06-01 10:07] LABS: BLOOD UREA NITROGEN 11 mg/dL (9-20); CARBON DIOXIDE 18 mmol/L (22-30); GFR AFRICAN-AMERICAN > 60
[2017-06-01 10:08] LABS: CALCIUM 8.5 mg/dl (8.6-10.4); GLUCOSE,RANDOM 237 mg/dL (75-110)
--- NOTE | 2017-06-01 12:34 | CARD ---
APPROVED REPORT EXAM: Two-dimensional and M-mode echocardiogram with Doppler and color Doppler. Other Information Quality : PoorRhythm : NSR INDICATION Congestive Heart Failure RISK FACTORS Diabetes M-Mode DIMENSIONS RVDd3.04 (2.1-3.2cm)Left Atrium (MM)5.86 (2.5-4.0cm) IVSd1.26 (0.7-1.1cm)Aortic Root3.21 (2.2-3.7cm) LVDd4.82 (4.0-5.6cm)Aortic Cusp Exc.2.26 (1.5-2.0cm) PWd1.30 (0.7-1.1cm)FS (%) 33 % LVDs3.21 (2.0-3.8cm)LVEF (%)62 (>50%) Aortic Valve AoV Peak Icrzsbkv005.3cm/Buddy Peak GR.8mmHg Mitral Valve MV E Rtqqsrho32.8cm/sMV A Nsegnytq640.0cm/sE/A ratio0.6 TDI E/Lateral E'0.0E/Medial E'0.0 Tricuspid Valve TR Peak Pwobtjig721tn/sTR Peak Gr.58jlQdCTLX31qcGw LEFT VENTRICLE The left ventricle is normal size. There is mild concentric left ventricular hypertrophy. Left ventricle systolic function is normal. The Ejection Fraction is 60-65%. Suboptimal with a poor acoustic window, not all segments aren't well seen, however grossly no wall motion abnormalities Transmitral Doppler flow pattern is Grade I-abnormal relaxation pattern. There is no ventricular septal defect visualized. RIGHT VENTRICLE The right ventricle is normal size. The right ventricular systolic function is normal. ATRIA The left atrium is moderately dilated. The right atrium size is normal. AORTIC VALVE The aortic valve is mildly sclerotic. The aortic valve is probably tri-cuspid. No aortic regurgitation is present. There is no aortic valvular stenosis. MITRAL VALVE The mitral valve is not well visualized. There is no evidence of mitral valve prolapse. There is no mitral valve regurgitation noted. TRICUSPID VALVE The tricuspid valve is not well visualized. There is trace tricuspid regurgitation. Right ventricular systolic pressure is estimated at less than 30 mmHg. There is no pulmonary hypertension. PULMONIC VALVE The pulmonic valve is not well visualized. There is no pulmonic valvular regurgitation. GREAT VESSELS The aortic root is not well visualized. The IVC is normal in size and collapses >50% with inspiration. PERICARDIAL EFFUSION There is no pericardial effusion. <Conclusion> Transmitral Doppler flow pattern is Grade I-abnormal relaxation pattern. The left atrium is moderately dilated. Left ventricle systolic function is normal. The Ejection Fraction is 60-65%. Suboptimal with a poor acoustic window.
--- NOTE | 2017-06-01 13:12 | CARD ---
APPROVED REPORT EKG Measurement Heart [id number] <Conclusion> Sinus rhythm with premature atrial complexes Otherwise normal ECG
--- NOTE | 2017-06-01 13:56 | CP.PCM.PN ---
Subjective - Date & Time of Evaluation Date of Evaluation: 06/01/17 Time of Evaluation: 12:25 - Subjective Subjective: Patient seen an dexamined today , denremy s any chest pain,m palpitations, dizziness, No overnight events recorded on monitor BS - improved with current regimen anion gap - 16 Objective - Vital Signs/Intake and Output Vital Signs (last 24 hours): Temp Pulse Resp BP Pulse Ox 97.7 F 85 18 141/64 99 06/01/17 07:00 06/01/17 11:47 06/01/17 07:00 06/01/17 09:47 06/01/17 07:00 Intake and Output: 06/01/17 06/01/17 06:59 18:59 Intake Total 250 Output Total 450 Balance -200 - Medications Medications: Current Medications Betamethasone/Clotrimazole (Lotrisone) 0 gm TOP BID [facility] Last Admin: 06/01/17 09:49 Dose: 1 applic Clopidogrel Bisulfate (Plavix) 75 mg PO DAILY [facility] Last Admin: 06/01/17 09:47 Dose: 75 mg Enoxaparin Sodium (Lovenox) 40 mg SC DAILY [facility] Last Admin: 06/01/17 09:48 Dose: 40 mg Insulin Glargine (Lantus) 20 unit SC [facility] Last Admin: 05/31/17 21:48 Dose: 20 units Insulin Human Regular (Novolin R) 0 unit SC [facility] PRN Reason: Protocol Last Admin: 06/01/17 12:42 Dose: 6 unit Insulin Human Regular (Novolin R) 7 unit SC [facility] Last Admin: 06/01/17 12:43 Dose: 7 unit Lisinopril (Zestril) 20 mg PO DAILY [facility] Last Admin: 06/01/17 09:47 Dose: 20 mg Metoprolol Tartrate (Lopressor) 25 mg PO DAILY [facility] Last Admin: 06/01/17 09:47 Dose: 25 mg Pneumococcal Polyvalent Vaccine (Pneumovax 23 Vaccine) 0.5 ml IM .ONCE ONE Stop: 06/01/17 14:01 Rosuvastatin Calcium (Crestor) 10 mg PO HS [facility] Last Admin: 05/31/17 21:47 Dose: 10 mg - Labs Labs: 05/31/17 07:08 06/01/17 07:03 - Constitutional Appears: Well, No Acute Distress - Respiratory Exam Respiratory Exam: Clear to Ausculation Bilateral, NORMAL BREATHING PATTERN - Cardiovascular Exam Cardiovascular Exam: REGULAR RHYTHM, +S1, +S2 - Neurological Exam Neurological Exam: Alert, Awake, Oriented x3 Assessment and Plan - Assessment and Plan (Free Text) Assessment: a/p 56 YR OLD MALE ADMITTED FOR HYPERGLYCEMIA
[2017-06-01] MEDS ORDERED: Pneumococcal 23-Valent Vaccine IM ONE (14:00)
[2017-06-01] MEDS ORDERED: Influenza Vaccine 60 mcg/0.5 mL SYR (4YR UP) IM ONE (14:00)
--- NOTE | 2017-06-01 14:58 | PN ---
DATE: SUBJECTIVE: The patient denies any chest pain or dizziness. He still feels weak. PHYSICAL EXAMINATION VITAL SIGNS: Blood pressure 141/64, heart rate 102, temperature 97.7, respirations 18. HEENT: Normocephalic. CHEST: Clear. HEART: S1 and S2 regular. EXTREMITIES: 1+ pitting edema. LABORATORY DATA: Today's SMA-7: Sodium 128, potassium 4.1, chloride 98, CO2 18, glucose 237, BUN 11, creatinine 0.7. Hemoglobin A1c 14.7. Official echocardiography study report, ejection fraction in the range of 65%, moderately dilated left atrium. ASSESSMENT: 1. Newly diagnosed diabetes mellitus. 2. Hypertension. 3. Nonocclusive coronary artery disease by cardiac catheterization in 2014 at [facility]. The patient denies presenting to any other hospital for chest pain in the past. RECOMMENDATIONS: Continue Crestor, Lopressor, subcutaneous Lovenox, Plavix and Zestril. The patient will be followed by his outpatient cardiology, Dr. Viveros . Michael Bell MD
[2017-06-01 16:03] VITALS: BP 107/67; RESP 20; TEMP 98.2; O2SAT 98
[2017-06-01 16:21] VITALS: PULSE 79
--- NOTE | 2017-06-01 18:40 | CARD ---
APPROVED REPORT EKG Measurement Heart [id number] <Conclusion> Supraventricular tachycardia Marked ST abnormality, possible inferior subendocardial injury Abnormal ECG
--- NOTE | 2017-06-01 18:40 | CARD ---
APPROVED REPORT EKG Measurement Heart [id number] <Conclusion> Normal sinus rhythm Normal ECG
--- NOTE | 2017-06-01 22:46 | CP.PCM.DIS ---
Provider - Provider Date of Admission: 05/30/17 12:08 Attending physician: Tyrone Johnson MD Time Spent in preparation of Discharge (in minutes): 43 Diagnosis - Discharge Diagnosis (1) DKA (diabetic ketoacidoses) Status: Acute (2) Morbid obesity Status: Acute (3) Dehydration Status: Acute (4) CAD (coronary artery disease) Status: Acute (5) Diabetes mellitus, new onset Status: Acute Hospital Course - Lab Results Lab Results: Most Recent Lab Values WBC 7.4 K/uL (4.8-10.8) 05/31/17 07:08 RBC 4.28 Mil/uL (4.40-5.90) L 05/31/17 07:08 Hgb 12.8 g/dL (12.0-18.0) 05/31/17 07:08 Hct 37.6 % (35.0-51.0) 05/31/17 07:08 MCV 88.0 fL (80.0-94.0) 05/31/17 07:08 MCH 30.0 pg (27.0-31.0) 05/31/17 07:08 MCHC 34.0 g/dL (33.0-37.0) 05/31/17 07:08 RDW 14.0 % (11.5-14.5) 05/31/17 07:08 Plt Count 189 K/uL (130-400) 05/31/17 07:08 MPV 10.8 fL (7.2-11.7) 05/31/17 07:08 Neut % (Auto) 71.4 % (50.0-75.0) 05/31/17 07:08 Lymph % (Auto) 17.9 % (20.0-40.0) L 05/31/17 07:08 [place] % (Auto) 8.5 % (0.0-10.0) 05/31/17 07:08 Eos % (Auto) 1.4 % (0.0-4.0) 05/31/17 07:08 Baso % (Auto) 0.8 % (0.0-2.0) 05/31/17 07:08 Neut # 5.3 K/uL (1.8-7.0) 05/31/17 07:08 Lymph # 1.3 K/uL (1.0-4.3) 05/31/17 07:08 [place] # 0.6 K/uL (0.0-0.8) 05/31/17 07:08 Eos # 0.1 K/uL (0.0-0.7) 05/31/17 07:08 Baso # 0.1 K/uL (0.0-0.2) 05/31/17 07:08 pO2 53 mm/Hg (30-55) 05/30/17 09:37 VBG pH 7.31 (7.32-7.43) L 05/30/17 09:37 VBG pCO2 30 mmHg (40-60) L 05/30/17 09:37 VBG HCO3 16.9 mmol/L 05/30/17 09:37 VBG Total CO2 16.0 mmol/L (22-28) L 05/30/17 09:37 VBG O2 Sat (Calc) 88.9 % (40-65) H 05/30/17 09:37 VBG Base Excess -9.8 mmol/L (0.0-2.0) L 05/30/17 09:37 VBG Potassium 4.6 mmol/L (3.6-5.2) 05/30/17 09:37 Sodium 129.0 mmol/l (132-148) L 05/30/17 09:37 Chloride 90.0 mmol/L (98-107) L 05/30/17 09:37 Glucose 635 mg/dl (75-110) H* 05/30/17 09:37 Lactate 1.7 mmol/L (0.7-2.1) 05/30/17 09:37 Crit Value Called To Dr alarcon 05/30/17 09:37 Crit Value Called By Tra barajas rrt 05/30/17 09:37 Crit Value Read Back Y 05/30/17 09:37 Blood Gas Notified Time 944 05/30/17 09:37 Sodium 128 mmol/L (132-148) L 06/01/17 07:03 Potassium 4.1 mmol/L (3.6-5.2) 06/01/17 07:03 Chloride 98 mmol/L (98-107) 06/01/17 07:03 Carbon Dioxide 18 mmol/L (22-30) L 06/01/17 07:03 Anion Gap 16 (10-20) 06/01/17 07:03 BUN 11 mg/dL (9-20) 06/01/17 07:03 Creatinine 0.7 mg/dL (0.8-1.5) L 06/01/17 07:03 Est GFR ( Amer) > 60 06/01/17 07:03 Est GFR (Non-Af Amer) > 60 06/01/17 07:03 POC Glucose (mg/dL) 323 mg/dL (65-110) H 06/01/17 16:28 Random Glucose 237 mg/dL (75-110) H 06/01/17 07:03 Hemoglobin A1c 14.7 % (4.2-6.5) H 05/31/17 11:56 Calcium 8.5 mg/dl (8.6-10.4) L 06/01/17 07:03 Magnesium 2.0 mg/dL (1.6-2.3) 05/31/17 07:08 Total Bilirubin 1.0 mg/dL (0.2-1.3) 05/30/17 09:34 AST 19 U/L (17-59) 05/30/17 09:34 ALT 34 U/L (21-72) 05/30/17 09:34 Alkaline Phosphatase 116 U/L (38-126) 05/30/17 09:34 Total Protein 8.2 g/dL (6.3-8.3) 05/30/17 09:34 Albumin 4.5 g/dL (3.5-5.0) 05/30/17 09:34 Globulin 3.8 gm/dL (2.2-3.9) 05/30/17 09:34 Albumin/Globulin Ratio 1.2 (1.0-2.1) 05/30/17 09:34 25-OH Vitamin D Total 21.4 NG/ML (30.0-100.0) L 06/01/17 07:03 TSH 3rd Generation 1.88 mIU/L (0.46-4.68) 06/01/17 07:03 Venous Blood Potassium 4.6 mmol/L (3.6-5.2) 05/30/17 09:37 Urine Color Straw (YELLOW) 05/30/17 12:17 Urine Clarity Clear (Clear) 05/30/17 12:17 Urine pH 5.0 (5.0-8.0) 05/30/17 12:17 Ur Specific [place] 1.030 (1.003-1.030) 05/30/17 12:17 Urine Protein Negative mg/dL (NEGATIVE) 05/30/17 12:17 Urine Glucose (UA) 3+ mg/dL (Normal) H 05/30/17 12:17 Urine Ketones 2+ mg/dL (NEGATIVE) H 05/30/17 12:17 Urine Blood Negative (NEGATIVE) 05/30/17 12:17 Urine Nitrate Negative (NEGATIVE) 05/30/17 12:17 Urine Bilirubin Negative (NEGATIVE) 05/30/17 12: Urine Urobilinogen Normal mg/dL (0.2-1.0) 05/30/17 12:17 Ur Leukocyte Esterase Neg Liana/uL (Negative) 05/30/17 12:17 Urine WBC (Auto) 2 /hpf (0-5) 05/30/17 12:17 Urine RBC (Auto) < 1 /hpf (0-3) 05/30/17 12:17 Ur Squamous Epith Cells < 1 /hpf (0-5) 05/30/17 12:17 Urine Opiates Screen Negative (NEGATIVE) 05/31/17 22:00 Urine Methadone Screen Negative (NEGATIVE) 05/31/17 22:00 Ur Barbiturates Screen Negative (NEGATIVE) 05/31/17 22:00 Ur Phencyclidine Scrn Negative (NEGATIVE) 05/31/17 22:00 Ur Amphetamines Screen Negative (NEGATIVE) 05/31/17 22:00 U Benzodiazepines Scrn Negative (NEGATIVE) 05/31/17 22:00 U Oth Cocaine Metabols Negative (NEGATIVE) 05/31/17 22:00 U Cannabinoids Screen Negative (NEGATIVE) 05/31/17 22:00 Serum Ketones Moderate (NEGATIVE) 06/01/17 07:03 - Hospital Course Hospital Course: Patient seen an dexamined today , denie s any chest pain,m palpitations, dizziness, No overnight events recorded on monitor BS - improved with current regimen anion gap - 16 DKA resolved Pt is for discharge today with out patient follow up Discharge Exam - Head Exam Head Exam: ATRAUMATIC, NORMAL INSPECTION, NORMOCEPHALIC - Eye Exam Eye Exam: EOMI, Normal appearance, PERRL Pupil Exam: NORMAL ACCOMODATION, PERRL - ENT Exam ENT Exam: Mucous Membranes Moist - Respiratory Exam Respiratory Exam: Clear to PA & Lateral, NORMAL BREATHING PATTERN - Cardiovascular Exam Cardiovascular Exam: REGULAR RHYTHM, +S1, +S2 - GI/Abdominal Exam GI & Abdominal Exam: Normal Bowel Sounds Discharge Plan - Discharge Medications Prescriptions: Blood-Glucose Meter [Accu-Chek Guide Monitor System] 1 each MC QID #1 each Alcohol Antiseptic Pads [Alcohol Swabs] 1 each TP QID 30 Days med..pad Insulin Glargine, Recombina [Lantus] 20 unit SC HS #1 unit Insulin Human Regular [Novolin R] 7 unit SC [facility] #2 unit Lancets [Onetouch Lancets] 1 each QID 30 Days each Blood Sugar Diagnostic [Onetouch Ultra Test Strips] 1 each QID 30 Days strip - Follow Up Plan Condition: SERIOUS Disposition: HOME/ ROUTINE Instructions: Insulin Human Regular (By injection), Insulin Glargine (By injection), Diabetic Ketoacidosis (DC), Diabetic Foot Care (DC), Diabetes Mellitus Type 2 in Adults (DC), Basic Carbohydrate Counting (DC), Meal Planning with the Plate Method (DC), Meal Planning with Diabetes Exchanges (DC) Additional Instructions: Please f/u with Dr. Johnson office next week Please f/u with an Balloon Dipper in 2 week continue medication as per med.rec. PLEASE GAME OPERATOR MEDICATION FROM [facility] - ANY ISSUES FOR FILL [facility] - CALL [phone] Christina Liang this Wednesday or Wednesday. Please call for appointment Referrals: Garth Vasquez MD [Staff Provider] - Tyrone Johnson MD [Staff Provider] -
== END 2017-06-01 19:31 | disposition home or self-care (01) | DRG 294 ==
LOC: C.ER 08:44 → C.9E 12:08 → C.6T 20:51
PROVIDERS: ADMIT Internal Medicine; ATTEND Internal Medicine
DX: E11.10 Type 2 diabetes mellitus with ketoacidosis without coma (principal); Z68.42 Body mass index [BMI] 45.0-49.9, adult; I10 Essential (primary) hypertension; E86.0 Dehydration; E83.51 Hypocalcemia; Z79.4 Long term (current) use of insulin; E66.01 Morbid (severe) obesity due to excess calories; E78.5 Hyperlipidemia, unspecified; I25.10 Atherosclerotic heart disease of native coronary artery without angina pectoris; Z95.5 Presence of coronary angioplasty implant and graft; L30.4 Erythema intertrigo